=== PATIENT | female | born 1985 | race Caucasian/White ===

== ENCOUNTER 2017-11-14 00:24 | Emergency (ER) | payer BC ==
[2016-03-28 17:05] VITALS: Ht 165.1 cm; Wt 63.5 kg
[~2017-11-14] VITALS: Ht 165.1 cm; Wt 63.5 kg
[~2017-11-14 00:24] MED LIST: ACE3 PO; ACET-3017 PO; IBUP-2704 PO; IBUP800T37 PO; PREN-127 PO
[2017-11-14 00:34] VITALS: BP 121/82
--- NOTE | 2017-11-14 00:34 | ER Report ---
History and Physical Time Seen By MD: 00:33 HPI/ROS CHIEF COMPLAINT: Lower abdominal pain HISTORY OF PRESENT ILLNESS: 32-year-old female presents ambulatory to the ER complaining of lower abdominal pain for approximately 6-8 hours. She describes a Crampy bloaty sensation radiating to her rectum. She had a normal bowel movement. She's had no constipation or diarrhea. She denies fever or chills. She denies dysuria, frequency or hematuria. Patient states she's in day 22 of her menstrual cycle. Patient denies . Patient has gluten sensitivity. She doesn't think she ate anything that would aggravate her symptoms. Patient states she sees a GI specialist. She's been diagnosed with IBS as well REVIEW OF SYSTEMS: Respiratory: No cough, no dyspnea. Cardiovascular: No chest pain, no palpitations. Gastrointestinal: As above Musculoskeletal: No back pain. Allergies: Coded Allergies: No Known Drug Allergies (Unverified , 11/14/17) Home Meds Active Scripts Ibuprofen (IBUPROFEN) 800 Mg Tablet, 800 MG PO Q8H, #30 TAB 0 Refills Prov:NEGRO SAENZ MD 03/29/16 Acetaminophen/Codeine (TYLENOL #3 (OR EQUIV)) 1 Ea Tab, 1-2 EACH PO Q4H Y for PAIN, #10 TAB 0 Refills Prov:NEGRO SAENZ MD 03/29/16 Reported Medications Vits W-Ca,Fe,Fa(<1MG) ( VITAMINS) 1 Each Tablet, 1 EACH PO DAILY, TAB 03/27/16 Hx Smoking: No Smoking Status: Never Smoker Exposure to Second Hand Smoke?: No Hx Substance Use Disorder: No Hx Alcohol Use: No Constitutional Vital Sign - Last 24 Hours 11/14/17 00:34 Temp 98.3 Pulse 101 Resp 14 B/P (MAP) 121/82 Pulse Ox 98 O2 Delivery Room Air Physical Exam General Appearance: The patient is alert, has no immediate need for airway protection and no current signs of toxicity. HEENT: Pupils equal and round no injection. Oropharynx without redness or exudate Respiratory: Chest is non tender, lungs are clear to auscultation. Cardiac: regular rate and rhythm Gastrointestinal: Abdomen is soft and non tender, no masses, bowel sounds are hyperactive Musculoskeletal: Neck: Neck is supple and non tender. Extremities have full range of motion and are non tender. Skin: No rashes or lesions. DIFFERENTIAL DIAGNOSIS: After history and physical exam differential diagnosis was considered for abdominal pain including but not limited to appendicitis, cholecystitis, gastritis and urinary tract infection. Additionally,abdominal pain in a female including but not limited to ovarian cyst, pelvic inflammatory disease, ovarian torsion, urinary tract infection, and appendicitis. Medical Decision Making Data Points Laboratory Hematology Test 11/14/17 00:52 Urine Color Colorless Urine Clarity Clear Urine pH 7.0 pH (4.8-9.5) Urine Specific Smoot 1.002 Urine Protein Negative mg/dL (NEGATIVE) Urine Glucose (UA) Negative mg/dL (NEGATIVE) Urine Ketones Negative mg/dL (NEGATIVE) Urine Blood Negative (NEGATIVE) Urine Nitrite Negative (NEGATIVE) Urine Bilirubin Negative (NEGATIVE) Urine Urobilinogen Negative mg/dL (0.2-1.9) Urine Leukocyte Esterase Negative (NEGATIVE) Urine RBC None /HPF (0-2/HPF) Urine WBC <1 /HPF (0-5/HPF) Urine Squamous Epithelial Cells Few /LPF (</=FEW) Urine Bacteria Negative /HPF (NONE-FEW) Urine Mucus None /HPF (NONE-FEW) Urine HCG, Qualitative Negative (NEGATIVE) Chemistry Test 11/14/17 00:52 Urine Color Colorless Urine Clarity Clear Urine pH 7.0 pH (4.8-9.5) Urine Specific Smoot 1.002 Urine Protein Negative mg/dL (NEGATIVE) Urine Glucose (UA) Negative mg/dL (NEGATIVE) Urine Ketones Negative mg/dL (NEGATIVE) Urine Blood Negative (NEGATIVE) Urine Nitrite Negative (NEGATIVE) Urine Bilirubin Negative (NEGATIVE) Urine Urobilinogen Negative mg/dL (0.2-1.9) Urine Leukocyte Esterase Negative (NEGATIVE) Urine RBC None /HPF (0-2/HPF) Urine WBC <1 /HPF (0-5/HPF) Urine Squamous Epithelial Cells Few /LPF (</=FEW) Urine Bacteria Negative /HPF (NONE-FEW) Urine Mucus None /HPF (NONE-FEW) Urine HCG, Qualitative Negative (NEGATIVE) Urinalysis Test 11/14/17 00:52 Urine Color Colorless Urine Clarity Clear Urine pH 7.0 pH (4.8-9.5) Urine Specific Smoot 1.002 Urine Protein Negative mg/dL (NEGATIVE) Urine Glucose (UA) Negative mg/dL (NEGATIVE) Urine Ketones Negative mg/dL (NEGATIVE) Urine Blood Negative (NEGATIVE) Urine Nitrite Negative (NEGATIVE) Urine Bilirubin Negative (NEGATIVE) Urine Urobilinogen Negative mg/dL (0.2-1.9) Urine Leukocyte Esterase Negative (NEGATIVE) Urine RBC None /HPF (0-2/HPF) Urine WBC <1 /HPF (0-5/HPF) Urine Squamous Epithelial Cells Few /LPF (</=FEW) Urine Bacteria Negative /HPF (NONE-FEW) Urine Mucus None /HPF (NONE-FEW) Urine HCG, Qualitative Negative (NEGATIVE) ED Course/Re-evaluation ED Course Patient was admitted to an examination room. H&P was done. The differential diagnoses was considered. Patient with a benign nonsurgical abdominal examination. Her bowel sounds are hyperactive. I suspect she got ahold some gluten. Patient's vital signs are stable. She is afebrile. She has no symptoms to suggest any serious pathology. A urinalysis and urinary test are unremarkable. Patient advised to conservative treatment plan of clear liquid diet and ibuprofen for pain. She was offered a prescription for Bentyl for her abdominal cramping. Patient advised to follow-up with her primary care or GI specialist if unimproved in 3-5 days. Decision to Disposition Date: Nov 14, 2017 Decision to Disposition Time: 01:08 Depart Departure Latest Vital Signs Vital Signs Date Time Temp Pulse Resp B/P (MAP) Pulse Ox O2 Delivery O2 Flow Rate FiO2 11/14/17 00:34 98.3 101 14 121/82 98 Room Air Impression: Primary Impression: Abdominal pain Additional Impression: Colic in adult Condition: Improved Disposition: HOME OR SELF-CARE Referrals: MANJINDER PARIS MD (PCP) Patient Instructions: Abdominal Pain (ED), Clear Liquid Diet (ED) Additional Instructions: Take ibuprofen 200 mg 3 tablets 3 times a day for inflammatory pain relief Follow-up clear liquid diet for 24-48 hours. Advance to the brat diet, bananas , rice, applesauce, toast Follow-up with your primary care if unimproved. On Wednesday Return to the ER for any worsening Problem Qualifiers Primary Impression: Abdominal pain Abdominal location: lower abdomen, unspecified Qualified Codes: R10.30 - Lower abdominal pain, unspecified JANICE GLASER DO Nov 14, 2017 00:34
== END 2017-11-14 01:27 | disposition home or self-care (01) ==
LOC: CANBEDREQ 00:29 → ER 00:39
DX: R10.84 Generalized abdominal pain (principal); R10.30 Lower abdominal pain, unspecified
CPT/HCPCS: 81001; 81025; 99282

== ENCOUNTER → 2018-03-08 | Outpatient (CLI) | payer OTHER ==
[2016-03-28 17:05] VITALS: BMI 29.6
[~2018-03-08] MED LIST changes: +ASCO-182 PO; +CHOL10005 PO; +L.AC1CAP6; +MULT1TAB64 PO
== END ==
LOC: LAB 10:41
PROVIDERS: ATTEND Obstetrics & Gynecology
DX: Z83.49 Family history of other endocrine, nutritional and metabolic diseases (principal)
CPT/HCPCS: 36415; 84443

== ENCOUNTER → 2018-07-05 | Outpatient (CLI) | payer OTHER ==
[2016-03-28 17:05] VITALS: BMI 29.6
== END ==
LOC: LAB 08:04
PROVIDERS: ATTEND Obstetrics & Gynecology
DX: J02.9 Acute pharyngitis, unspecified (principal)
CPT/HCPCS: 87070

== ENCOUNTER → 2019-06-07 | Outpatient (CLI) | payer OTHER ==
[2016-03-28 17:05] VITALS: BMI 29.6
== END ==
LOC: LAB 10:02
PROVIDERS: ATTEND Obstetrics & Gynecology
DX: F41.9 Anxiety disorder, unspecified (principal)
CPT/HCPCS: 36415; 84439; 84443; 84481

== ENCOUNTER → 2019-06-09 | Outpatient (CLI) | payer OTHER ==
[2016-03-28 17:05] VITALS: BMI 29.6
[~2019-06-09] MED LIST changes: +ESCI10TA8 PO; +ESCI5TAB10 PO
== END ==
LOC: US 06-08 00:13
PROVIDERS: ATTEND Family Medicine
DX: R00.2 Palpitations (principal)
CPT/HCPCS: 93306